=== PATIENT | female | born 1995 | race Caucasian/White ===

== ENCOUNTER 2017-09-08 10:05 | Inpatient (IN) | payer OTHER ==
[2017-09-08] MEDS ORDERED: KETOROLAC 30 MG INJ IV (10:45)
[2017-09-08] MEDS: ONDANSETRON 4 MG INJ IV ×4 (11:14→22:31)
[2017-09-08] MEDS: ACETAMINOPHEN 500 MG TAB PO ×2 (11:14→11:19)
[2017-09-08] MEDS: SOD CHLORIDE 0.9% 1,000 ML IV ×2 (11:15→18:06)
[2017-09-08 11:25] LABS: ADD MAN DIFF? NO
[2017-09-08 11:27] LABS: ABNORMAL IP MESSAGE 1; BASOPHILS % 0.1 % (0.0-2.0); HEMATOCRIT 33.9 % (37.0-47.0); HEMOGLOBIN 11.3 g/dl (12.0-16.0); LYMPHOCYTES # 0.7 10^3/ul (0.8-2.9); LYMPHOCYTES % 3.3 % (18.0-55.0); MEAN CORPUSCULAR HEMOGLOBIN 30.1 pg (29.0-33.0); MEAN CORPUSCULAR HGB CONC 33.3 g/dl (32.0-37.0); MEAN CORPUSCULAR VOLUME 90.2 fl (72.0-104.0); MONOCYTE # 1.6 10^3/ul (0.3-0.9); NEUTROPHILS % 88.1 % (30.0-74.0); PLATELET COUNT 186 10^3/UL (140-415); RED BLOOD COUNT 3.76 10^6/ul (4.20-5.40); RED CELL DISTRIBUTION WIDTH 12.6 % (11.5-14.5)
[2017-09-08 11:27] LABS: WHITE BLOOD COUNT 20.5 10^3/ul (4.8-10.8)
[2017-09-08 11:28] LABS: POSITIVE DIFF @See below
[2017-09-08] MEDS: ACETAMINOPHEN 325 MG TAB PO ×2 (11:32→18:03)
[2017-09-08 11:38] LABS: ADD UMIC YES; UR ASCORBIC ACID 40 mg/dL (NEGATIVE); UR BILIRUBIN (Dip) NEGATIVE (NEGATIVE); UR BLOOD (Dip) 3+ mg/dL (NEGATIVE); UR CLARITY SLIGHTLY CLOUDY (CLEAR); UR COLOR YELLOW (YELLOW); UR GLUCOSE (Dip) NEGATIVE (NEGATIVE); UR KETONES (Dip) NEGATIVE (NEGATIVE); UR LEUKOCYTE ESTERASE (Dip) 1+ Leu/ul (NEGATIVE); UR NITRITE (Dip) NEGATIVE (NEGATIVE); UR RBC 22 /HPF (0-5); UR SPECIFIC GRAVITY (Dip) 1.024 (1.003-1.030); UR SQUAMOUS EPITHELIAL CELL FEW /HPF (FEW); UR TOTAL PROTEIN (Dip) 2+ mg/dl (NEGATIVE); UR UROBILINOGEN (Dip) NEGATIVE (NEGATIVE); UR WBC 27 /HPF (0-5)
[2017-09-08 11:46] LABS: ALANINE AMINOTRANSFERASE 21 IU/L (13-69); ALBUMIN 3.9 g/dl (3.3-4.9); ALBUMIN/GLOBULIN RATIO 1.21; ALKALINE PHOSPHATASE 74 IU/L (42-121); ANION GAP 15 (8-16); ASPARTATE AMINO TRANSFERASE 20 IU/L (15-46); BILIRUBIN,INDIRECT 0.4 mg/dl (0-1.1); BILIRUBIN,TOTAL 0.4 mg/dl (0.2-1.3); BLOOD UREA NITROGEN 25 mg/dl (7-20); CARBON DIOXIDE 24 mmol/L (21-31); CHLORIDE 106 mmol/L (97-110); CREATININE 2.24 mg/dl (0.44-1.00); GLUCOSE 133 mg/dl (70-220); LIPASE 49 U/L (23-300); SODIUM 141 mmol/L (135-144); TOTAL PROTEIN 7.1 g/dl (6.1-8.1)
[2017-09-08 12:09] LABS: LACTIC ACID 1.3 mmol/L (0.5-2.0)
[2017-09-08] MEDS: CEFTRIAXONE 1 GM/50 ML (PMX) 50 ML IVPB (12:46)
[2017-09-08] MEDS ORDERED: SOD CHLORIDE 0.9% 1,000 ML IV (15:00)
[2017-09-08] MEDS ORDERED: ONDANSETRON 4 MG INJ IV (15:00)
[2017-09-08] MEDS ORDERED: ACETAMINOPHEN 325 MG TAB PO (15:00)
[2017-09-08] MEDS ORDERED: DOCUSATE SODIUM 100 MG CAP PO (18:00)
[2017-09-08] MEDS ORDERED: morphine 2 MG INJ IV (18:00)
[2017-09-08] MEDS ORDERED: NACL 0.9% 3 ML SYG IV (18:00)
[2017-09-08] MEDS ORDERED: HYDROCODONE/APAP (5/325) TAB PO (18:00)
[2017-09-08] MEDS: ERTAPENEM SODIUM 1 GM in SOD CHLORIDE 0.9% 100 ML IVPB (20:35)
[2017-09-08] MEDS: FERROUS SULFATE (EC) 325 MG TAB PO (20:48)
[2017-09-08] MEDS: TACROLIMUS 1 MG CAP PO (20:48)
[2017-09-08] MEDS: MYCOPHENOLATE 250 MG CAP PO (20:48)
[2017-09-08] MEDS: RANITIDINE 150 MG TAB PO (20:49)
[2017-09-08] MEDS: DAPTOMYCIN IVPB (21:56)
[2017-09-08] MEDS: SOD CHLORIDE 0.9% IVPB (21:56)
[2017-09-08] MEDS: HEPARIN 5,000 UNIT/0.5 ML VIAL SC (22:20)
[2017-09-08] MEDS: SERTRALINE 50 MG TAB PO (22:20)
[2017-09-08] MEDS: LISINOPRIL 10 MG TAB PO (22:24)
[2017-09-09] MEDS: ACETAMINOPHEN 325 MG TAB PO ×2 (01:52→12:48)
[2017-09-09] MEDS: HEPARIN 5,000 UNIT/0.5 ML VIAL SC ×3 (05:32→22:38)
[2017-09-09] MEDS: PANTOPRAZOLE 40 MG INJ IV (05:32)
[2017-09-09] MEDS: ONDANSETRON 4 MG INJ IV ×3 (05:33→22:02)
[2017-09-09] MEDS: SOD CHLORIDE 0.9% 1,000 ML IV ×2 (06:30→13:33)
[2017-09-09 07:16] LABS: ADD MAN DIFF? NO
[2017-09-09 07:18] LABS: ABNORMAL IP MESSAGE 1; BASOPHILS % 0.1 % (0.0-2.0); HEMATOCRIT 29.7 % (37.0-47.0); HEMOGLOBIN 9.7 g/dl (12.0-16.0); LYMPHOCYTES % 4.8 % (18.0-55.0); MEAN CORPUSCULAR HEMOGLOBIN 29.9 pg (29.0-33.0); MEAN CORPUSCULAR HGB CONC 32.7 g/dl (32.0-37.0); MEAN CORPUSCULAR VOLUME 91.7 fl (72.0-104.0); MEAN PLATELET VOLUME 10.6 fl (7.4-10.4); MONOCYTE # 1.6 10^3/ul (0.3-0.9); MONOCYTES % 7.9 % (0.0-13.0); NEUTROPHIL # 17.9 10^3/ul (1.6-7.5); NEUTROPHILS % 86.6 % (30.0-74.0); PLATELET COUNT 177 10^3/UL (140-415); RED BLOOD COUNT 3.24 10^6/ul (4.20-5.40); RED CELL DISTRIBUTION WIDTH 12.6 % (11.5-14.5)
[2017-09-09 07:18] LABS: WHITE BLOOD COUNT 20.7 10^3/ul (4.8-10.8)
[2017-09-09 07:28] LABS: POSITIVE DIFF @See below
[2017-09-09 07:47] LABS: ALANINE AMINOTRANSFERASE 22 IU/L (13-69); ALBUMIN 3.3 g/dl (3.3-4.9); ALBUMIN/GLOBULIN RATIO 1.13; ALKALINE PHOSPHATASE 65 IU/L (42-121); ANION GAP 14 (8-16); ASPARTATE AMINO TRANSFERASE 19 IU/L (15-46); BILIRUBIN,INDIRECT 0.1 mg/dl (0-1.1); BILIRUBIN,TOTAL 0.1 mg/dl (0.2-1.3); BLOOD UREA NITROGEN 29 mg/dl (7-20); CALCIUM 8.3 mg/dl (8.4-10.2); CARBON DIOXIDE 24 mmol/L (21-31); CHLORIDE 108 mmol/L (97-110); CREATININE 2.63 mg/dl (0.44-1.00); GLUCOSE 123 mg/dl (70-220); MAGNESIUM 1.5 mg/dl (1.7-2.5); PHOSPHORUS 3.4 mg/dl (2.5-4.9); POTASSIUM 3.8 mmol/L (3.5-5.1); SODIUM 142 mmol/L (135-144); TOTAL PROTEIN 6.2 g/dl (6.1-8.1)
[2017-09-09] MEDS: RANITIDINE 150 MG TAB PO ×2 (09:00→22:26)
[2017-09-09] MEDS: CHOLECALCIFEROL 1,000 UNIT TAB PO (09:00)
[2017-09-09] MEDS: TACROLIMUS 1 MG CAP PO ×2 (09:00→22:32)
[2017-09-09] MEDS ORDERED: SERTRALINE 50 MG TAB PO (09:00)
[2017-09-09] MEDS: FERROUS SULFATE (EC) 325 MG TAB PO ×2 (09:00→22:25)
[2017-09-09] MEDS: predniSONE 5 MG TAB PO (09:00)
[2017-09-09] MEDS: MYCOPHENOLATE 250 MG CAP PO ×2 (09:00→22:25)
[2017-09-09] MEDS: MAGNESIUM OXIDE 400 MG TAB PO ×2 (10:31→22:26)
[2017-09-09] MEDS: NYSTATIN SUSP 5 ML CUP PO ×2 (17:49→22:25)
[2017-09-09] MEDS: ERTAPENEM SODIUM 1 GM in SOD CHLORIDE 0.9% 100 ML IVPB (20:04)
[2017-09-09] MEDS: DAPTOMYCIN IVPB (20:39)
[2017-09-09] MEDS: SOD CHLORIDE 0.9% IVPB (20:39)
[2017-09-09] MEDS: SERTRALINE 50 MG TAB PO (22:26)
[2017-09-09] MEDS: METOCLOPRAMIDE 10 MG INJ IV (23:12)
[2017-09-10] MEDS: SOD CHLORIDE 0.9% 1,000 ML IV ×3 (00:14→08:47)
[2017-09-10] MEDS: ACETAMINOPHEN 325 MG TAB PO (00:14)
[2017-09-10] MEDS: HEPARIN 5,000 UNIT/0.5 ML VIAL SC ×2 (05:26→14:11)
[2017-09-10 07:08] LABS: CREATINE KINASE 51 IU/L (23-200)
[2017-09-10] MEDS: MYCOPHENOLATE 250 MG CAP PO (08:43)
[2017-09-10] MEDS: CHOLECALCIFEROL 1,000 UNIT TAB PO (08:44)
[2017-09-10] MEDS: RANITIDINE 150 MG TAB PO (08:44)
[2017-09-10] MEDS: predniSONE 5 MG TAB PO (08:44)
[2017-09-10] MEDS: TACROLIMUS 1 MG CAP PO (08:44)
[2017-09-10] MEDS: NYSTATIN SUSP 5 ML CUP PO ×3 (08:44→13:00)
[2017-09-10] MEDS: FERROUS SULFATE (EC) 325 MG TAB PO (08:44)
[2017-09-10] MEDS: ONDANSETRON 4 MG INJ IV (10:31)
[2017-09-10] MEDS: METOCLOPRAMIDE 10 MG INJ IV (14:28)
[2017-09-10 14:56] LABS: ADD MAN DIFF? NO
[2017-09-10 15:05] LABS: BASOPHILS % 0.2 % (0.0-2.0); EOSINOPHILS % 0.1 % (0.0-7.0); HEMATOCRIT 28.1 % (37.0-47.0); HEMOGLOBIN 9.2 g/dl (12.0-16.0); LYMPHOCYTES # 0.7 10^3/ul (0.8-2.9); LYMPHOCYTES % 6.6 % (18.0-55.0); MEAN CORPUSCULAR HEMOGLOBIN 29.2 pg (29.0-33.0); MEAN CORPUSCULAR HGB CONC 32.7 g/dl (32.0-37.0); MEAN CORPUSCULAR VOLUME 89.2 fl (72.0-104.0); MEAN PLATELET VOLUME 10.7 fl (7.4-10.4); MONOCYTE # 0.5 10^3/ul (0.3-0.9); MONOCYTES % 4.4 % (0.0-13.0); NEUTROPHIL # 9.7 10^3/ul (1.6-7.5); PLATELET COUNT 203 10^3/UL (140-415); RED BLOOD COUNT 3.15 10^6/ul (4.20-5.40); RED CELL DISTRIBUTION WIDTH 12.3 % (11.5-14.5)
[2017-09-10 15:16] LABS: ANION GAP 13 (8-16); BLOOD UREA NITROGEN 32 mg/dl (7-20); CALCIUM 8.6 mg/dl (8.4-10.2); CARBON DIOXIDE 21 mmol/L (21-31); CHLORIDE 111 mmol/L (97-110); CREATININE 2.71 mg/dl (0.44-1.00); GLUCOSE 108 mg/dl (70-220); SODIUM 141 mmol/L (135-144)
[2017-09-13 18:47] LABS: TACROLIMUS 3.7 mcg/L
== END 2017-09-10 16:35 | disposition short-term general hospital (02) | DRG 872 ==
LOC: FTE 10:05 → PP2 15:01
DX: A41.9 Sepsis, unspecified organism (principal); T86.19 Other complication of kidney transplant; N17.9 Acute kidney failure, unspecified; B37.0 Candidal stomatitis; N39.0 Urinary tract infection, site not specified; Z68.43 Body mass index [BMI] 50.0-59.9, adult; K76.0 Fatty (change of) liver, not elsewhere classified; E66.9 Obesity, unspecified; R10.9 Unspecified abdominal pain; R19.7 Diarrhea, unspecified; Z79.899 Other long term (current) drug therapy
CPT/HCPCS: 71045; 74018; 74176; 76705; 76775; 80048; 80053; 80197; 81001; 82550; 83605; 83690; 83735; 84100; 84703; 85025; 87040; 87075; 87086; 87400